=== PATIENT | female | born 1980 | race Caucasian/White ===

== ENCOUNTER → 2018-10-02 17:21 | Outpatient (CLI) | payer OTHER, SELFPAY ==
[2018-10-07 15:09] LABS: HPV Reflexed? NOT INDICATED
== END ==
PROVIDERS: Referring Provider Obstetrics & Gynecology; Visit Provider Obstetrics & Gynecology
DX: Z12.4 Encounter for screening for malignant neoplasm of cervix (principal)
CPT/HCPCS: 87624; 88175; G0145

== ENCOUNTER → 2020-12-16 | Outpatient (CLI) | payer OTHER, SELFPAY ==
[2020-12-21 16:31] LABS: HPV Reflexed? NOT INDICATED
== END | disposition home or self-care (01) ==
LOC: LABSPEC 09:59
PROVIDERS: Visit Provider Obstetrics & Gynecology
DX: Z12.4 Encounter for screening for malignant neoplasm of cervix (principal)
CPT/HCPCS: 88175; G0145